=== PATIENT | female | born 1970 ===

== ENCOUNTER 2021-01-11 07:27 | Day surgery (SDC) | payer OTHER ==
[~2021-01-11 07:27] MED LIST: ANASTROZOLE1 MG PO
== END 2021-01-11 18:40 | disposition home or self-care (01) ==
LOC: CIR.AMB 07:27
PROVIDERS: ATTEND Surgery
DX: C50.812 Malignant neoplasm of overlapping sites of left female breast (principal); Z20.822 Contact with and (suspected) exposure to COVID-19
CPT/HCPCS: 36561; C1751